=== PATIENT | male | born 1985 | race Caucasian/White ===

== ENCOUNTER → 2017-03-03 | Outpatient (CLI) | payer OTHER ==
[2017-03-03 11:12] LABS: HEMOGLOBIN 15.1 gm/dl (14.0-17.5); RED BLOOD COUNT 4.95 M/UL (4.20-5.50); WHITE BLOOD COUNT 7.3 K/UL (4.5-11.0)
== END ==
LOC: LAB 09:49
PROVIDERS: Nurse Practitioner Family
DX: L50.1 Idiopathic urticaria (principal); J30.89 Other allergic rhinitis
CPT/HCPCS: 36415; 84439; 84443; 84480; 85025; 86161; 86162; 86376; 86800; 87086

== ENCOUNTER → 2021-11-08 | Outpatient (CLI) | payer OTHER | LOC: KOH-I 16:37 | DX: M25.551 Pain in right hip (principal) | CPT/HCPCS: 73502 ==